=== PATIENT | male | born 1960 | race American Indian/Alaskan Native ===

== ENCOUNTER → 2025-01-31 | Outpatient (CLI) | payer OTHER, SELFPAY ==
--- NOTE | 2025-01-31 15:54 | XR_ITS ---
Examination:Left hip AP, lateral, AP pelvis 3 views Technique: Hip AP lateral, AP pelvis, 3 views Exam date and time:January 31, 2025 1556 hrs. Indications: Knee pain beginning one week ago. Findings: Total left hip arthroplasty. Satisfactory alignment No loosening of the prosthetic components Advanced right hip osteoarthritis No pelvic fracture Impression: Total left hip arthroplasty with satisfactory alignment.
== END | disposition home or self-care (01) ==
PROVIDERS: PCP Physician Assistant; Referring Provider Physician Assistant; Visit Provider Physician Assistant
DX: M25.552 Pain in left hip (principal); Z96.642 Presence of left artificial hip joint
CPT/HCPCS: 73502

== ENCOUNTER → 2025-08-12 | Outpatient (CLI) | payer BC, SELFPAY ==
--- NOTE | 2025-08-12 15:30 | XR_ITS ---
EXAMINATION: Ultrasound soft tissue neck TECHNIQUE: Grayscale sonographic images soft tissue neck Date and time: August 12, 2025, 1542 hours INDICATIONS: Palpable lump in the posterior neck noticed beginning 1 year ago. FINDINGS: 2.0 x 0.7 x 1.8 cm solid mass in the posterior mid neck at the area of concern IMPRESSION: Solid mass 2.0 x 8.7 x 1.8 cm at the area of concern in the posterior neck, differential would include soft tissue tumor, pathologic lymph node, consider CT soft tissue neck with intravenous contrast follow-up
== END | disposition home or self-care (01) ==
PROVIDERS: PCP Physician Assistant; Referring Provider Physician Assistant; Visit Provider Physician Assistant
DX: R22.1 Localized swelling, mass and lump, neck (principal)
CPT/HCPCS: 76536